=== PATIENT | female | born 1995 | race African-American/Black ===

== ENCOUNTER 2016-11-01 21:27 | Emergency (ER) | payer SELFPAY ==
--- OUTSIDE RECORDS SUMMARY | 2016-11-01 21:35 | XMS REPORT | Continuity of Care Document ---
Author Author Interface Organization Interface Address Unknown Phone Unavailable Problems Problem Status Onset Date Classification Date Reported Comments Source Allergic reaction (disorder) Active Problem 02/19/2015 [facility] Bacterial vaginosis (disorder) Active Problem 02/19/2015 [facility] Candidiasis of vagina (disorder) Active Problem 2014 [facility] Dysmenorrhea (disorder) Active Problem 02/19/2015 [facility] Menorrhagia (finding) Active Problem 02/19/2015 [facility] Navarro splint (physical object) Active Problem 02/19/2015 [facility] Syncope (disorder) Active Problem 02/19/2015 [facility] Vaginal odor (finding) Active Problem 02/19/2015 [facility] Vaginitis (disorder) Active Problem 02/19/2015 [facility] Verruca (morphologic abnormality) Active Problem 2014 [facility] Well child visit (procedure) Active Problem 02/19/2015 [facility] Allergic reaction (disorder) Active Problem 02/10/2016 [facility] Bacterial vaginosis (disorder) Active Problem 02/10/2016 [facility]. Candidiasis of vagina (disorder) Active Problem 2015 [facility] Dysmenorrhea (disorder) Active Problem 02/10/2016 [facility] Menorrhagia (finding) Active Problem 02/10/2016 [facility] Navarro splint (physical object) Active Problem 02/10/2016 [facility]. Syncope (disorder) Active Problem 02/10/2016 [facility]. Vaginal odor (finding) Active Problem 02/10/2016 [facility]. Vaginitis (disorder) Active Problem 02/10/2016 [facility]. Verruca (morphologic abnormality) Active Problem 2015 [facility]. Well child visit (procedure) Active Problem 02/10/2016 [facility]. Bacterial vaginosis (disorder) Active Problem 11/09/2013 [facility] Dysmenorrhea (disorder) Active Problem 11/09/2013 [facility] Menorrhagia (finding) Active Problem 11/09/2013 [facility] Navarro splint (physical object) Active Problem 11/09/2013 [facility] Syncope (disorder) Active Problem 11/09/2013 [facility] Vaginal odor (finding) Active Problem 11/09/2013 [facility] Verruca (morphologic abnormality) Active Problem 2013 [facility] Well child visit (procedure) Active Problem 11/09/2013 [facility] Generalized anxiety disorder 03/31/2015 Diagnosis 2014 [facility] Vaginitis (disorder) 2015 Diagnosis 02/10/2016 [facility] Urinary tract infection, site not specified 02/17/2015 Diagnosis 02/21/2015 [facility] Cervicitis and endocervicitis 02/17/2015 Diagnosis 2014 [facility] Other specified symptoms associated with female genital organs 02/17/2015 Diagnosis 02/21/2015 [facility] Vaginitis and vulvovaginitis, unspecified 08/16/2014 Diagnosis 08/20/2014 [facility] Candidiasis of vulva and vagina 08/16/2014 Diagnosis [facility] Allergy, unspecified, not elsewhere classified 04/12/2014 Diagnosis 04/16/2014 [facility] Need for other specified vaccination against single bacterial disease 03/16/2014 Diagnosis 03/20/2014 [facility] Medications Medication Details Route Status Patient Instructions Ordering Provider Order Date Source No Known Medications No known medications Active [facility] Allergies, Adverse Reactions, Alerts Substance Category Reaction Severity Reaction type Status Date Reported Comments Source Se[facility] Congestion of throat (finding) Drug allergy [facility] Seafood Assertion Congestion of throat (finding) Drug allergy [facility] NKA drug allergy Allergy Active [facility] Immunizations Immunization Date Given Site Status Last Updated Comments Source No data available for this section No data available for this section [facility] No data available for this section No data available for this section [facility] Results Order Name Results Value Reference Range Date Interpretation Comments Source Vital Signs Vital Sign Value Date Comments Source Encounters Location Location Details Encounter Type Encounter Number Reason For Visit Attending Provider ADM Date DC Date Status Source [facility] [id number] Clinic ( Outpatient) [id number] Naheed Crescencio 02/06/2016 Active [facility] Reference/ Referral Lab Billing Physician Non-Staff 02/15/2015 02/16/2015 [facility] [id number] Naheed Crescencio 03/31/2015 04/01/2015 [facility] [id number] Naheed Crescencio 02/06/2016 02/07/2016 [facility] [id number] [facility] 02/17/2015 02/18/2015 [facility] [id number] Naheed Crescencio 08/16/2014 08/17/2014 [facility] [id number] Naheed Crescencio 04/12/2014 04/13/2014 [facility] [id number] . [facility] 03/16/2014 03/17/2014 [facility] [id number] Clinic ( Outpatient) [id number] [facility] 02/17/2015 Active [facility] [id number] Clinic ( Outpatient) [id number] Naheed Crescencio 03/31/2015 Active [facility] [id number] Clinic ( Outpatient) [id number] Naheed Crescencio 08/16/2014 Active [facility] [id number] Clinic ( Outpatient) [id number] Naheed Crescencio 11/05/2013 Active [facility] [id number] Clinic ( Outpatient) [id number] . [facility] 10/29/2013 Active [facility] [id number] Clinic ( Outpatient) [id number] . [facility] 07/13/2013 Active [facility] [id number] Clinic ( Outpatient) [id number] . [facility] Walk-In 03/16/2014 Active [facility] [id number] Clinic ( Outpatient) [id number] Naheed Prather 04/12/2014 Active [facility] Procedures Procedure Code Date Perfomer Comments Source No data available for this section [facility]
== END 2016-11-01 23:36 | disposition left against medical advice (07) ==
LOC: ER 21:30
DX: R06.02 Shortness of breath (principal); Z53.21 Procedure and treatment not carried out due to patient leaving prior to being seen by health care provider

== ENCOUNTER 2017-08-16 22:17 | Emergency (ER) | payer OTHER ==
[~2017-08-16] VITALS: Ht 170.2 cm; Wt 63.5 kg
--- OUTSIDE RECORDS SUMMARY | 2017-08-16 22:25 | XMS REPORT | Continuity of Care Document ---
Author Author [employer] Organization [employer] Address Unknown Phone Unavailable Care Team Providers Care Child Support Specialist Name Role Phone [employer] Unavailable Unavailable Problems Problem Status Onset Date Classification Date Reported Comments Source Vaginitis (disorder) 2015 Diagnosis 02/10/2016 [facility] Generalized anxiety disorder 03/31/2015 Diagnosis 2014 [facility] Urinary tract infection, site not specified 02/17/2015 Diagnosis 02/21/2015 [facility] Cervicitis and endocervicitis 02/17/2015 Diagnosis 2014 [facility] Other specified symptoms associated with female genital organs 02/17/2015 Diagnosis 02/21/2015 [facility] Vaginitis and vulvovaginitis, unspecified 08/16/2014 Diagnosis 08/20/2014 [facility] Candidiasis of vulva and vagina 08/16/2014 Diagnosis [facility] Allergy, unspecified, not elsewhere classified 04/12/2014 Diagnosis 04/16/2014 [facility] Need for other specified vaccination against single bacterial disease 03/16/2014 Diagnosis 03/20/2014 [facility] Allergic reaction (disorder) Active Problem 02/10/2016 [facility], [facility] Bacterial vaginosis (disorder) Active Problem 02/10/2016 [facility], [facility] Candidiasis of vagina (disorder) Active Problem 2015 [facility], [facility] Dysmenorrhea (disorder) Active Problem 02/10/2016 [facility], [facility] Menorrhagia (finding) Active Problem 02/10/2016 [facility], [facility] Navarro splint (physical object) Active Problem 02/10/2016 [facility], [facility] Syncope (disorder) Active Problem 02/10/2016 [facility], [facility] Vaginal odor (finding) Active Problem 02/10/2016 [facility], [facility] Vaginitis (disorder) Active Problem 02/10/2016 [facility] Verruca (morphologic abnormality) Active Problem 2015 [facility] Well child visit (procedure) Active Problem 02/10/2016 [facility] Medications Medication Details Route Status Patient Instructions Ordering Provider Order Date Source No Known Medications No known medications Active [facility] Allergies, Adverse Reactions, Alerts Substance Category Reaction Severity Reaction type Status Date Reported Comments Source Seafood Assertion Congestion of throat (finding) Drug allergy [facility] NKA drug allergy Allergy Active [facility] Immunizations Immunization Date Given Site Status Last Updated Comments Source No data available for this section No data available for this section [facility] Results Vital Signs Encounters Location Location Details Encounter Type Encounter Number Reason For Visit Attending Provider ADM Date DC Date Status Source [facility] [id number] . [facility] Walk-In 03/16/2014 03/17/2014 [facility] [id number] Naheed Prather 04/12/2014 04/13/2014 [facility] [id number] aNheed Prather 08/16/2014 08/17/2014 [facility] Reference/ Referral Lab Billing Physician Non-Staff 02/15/2015 02/16/[address] [facility] [id number] Abby Alexandre 02/17/2015 02/18/2015 [facility] [id number] Naheed Prather 03/31/2015 04/01/2015 [facility] [id number] Naheed Prather 02/06/2016 02/07/2016 [facility] Procedures Procedure Code Date Perfomer Comments Source No data available for this section [facility] Plan of Care Social History Assessment and Plan Family History Value Date Source Advance Directives Order Name Results Value Date Source
[2017-08-16] MEDS ORDERED: L-NO1TBD18 (22:35)
[2017-08-16] MEDS ORDERED: FLUC150T2 (22:35)
[2017-08-16 22:47] LABS: BILIRUBIN,URINE NEGATIVE (NEGATIVE); KETONES,URINE NEGATIVE (NEGATIVE); LEUKOCYTE ESTERASE ,URINE 1+ (NEGATIVE); NITRITE,URINE NEGATIVE (NEGATIVE); PH,URINE 6 (5-9); PROTEIN,URINE 1+ (NEGATIVE); UROBILINOGEN,URINE 4 MG/DL (NORMAL)
[2017-08-16 22:59] LABS: BASOPHILS % (AUTO) 0 % (0-10); EOSINOPHILS # (AUTO) 0.2 10^3/uL (0.0-0.3); EOSINOPHILS % (AUTO) 3 % (0-10); LYMPHOCYTES % (AUTO) 44 % (12-44); MEAN CORPUSCULAR HEMOGLOBIN 31 PG (25-34); MEAN CORPUSCULAR HGB CONC 33 G/DL (32-36); MEAN CORPUSCULAR VOLUME 93 FL (80-99); MEAN PLATELET VOLUME 9.7 FL (7.4-10.4); MONOCYTES # (AUTO) 0.4 X 10^3 (0.0-1.0); MONOCYTES % (AUTO) 9 % (0-12); NEUTROPHILS # (AUTO) 1.9 X 10^3 (1.8-7.8); NEUTROPHILS % (AUTO) 43 % (42-75); PLATELET COUNT 197 10^3/uL (130-400); RED BLOOD COUNT 4.45 10^6/uL (4.35-5.85); RED CELL DISTRIBUTION WIDTH 12.5 % (10.0-14.5); WHITE BLOOD COUNT 4.5 10^3/uL (4.3-11.0)
[2017-08-16] MEDS ORDERED: NS IV 1000 ML 1,000 ML IV ONE (22:59)
[2017-08-16 23:00] LABS: SQUAMOUS EPITHELIAL CELL,UR >50 /HPF
[2017-08-16] MEDS ORDERED: RX-DIPHENO./ATROP. 2.5/0.25 MG (LOMOTIL) TAB PPK#4 PO STA (23:01)
--- NOTE | 2017-08-16 23:08 | ED GI ---
General Chief Complaint: Abdominal/GI Problems Stated Complaint: "APPENDIX BURST"/ R SIDE STOMACH PAIN/STOMACH FLU Nursing Triage Note: patient reports LUQ, RUQ, RLQ pain. states was evaluated yesterday and told she had the 'stomach flu' patient reports having emesis yesterday but not today however, stating diarrhea continues. patient reports pain started after eating pea soup Sepsis Screen: No Definite Risk History of Present Illness Time Seen By Provider: 22:40 Initial Comments 21-year-old -[place] female Patient reports that she started with vomiting 2 days ago. The vomiting has resolved and she is now having diarrhea. She reports approximately 3 episodes in the hour prior to her coming here. She has been taking Imodium and Phenergan. Approximately 3 weeks ago she was diagnosed with vaginal candidiasis, and treated with Diflucan. She is sexually active, one partner, oral contraceptives and uses condoms. She had STI testing approximately 3-4 weeks ago and all were negative, no new partners. She denies any vaginal discharge or painful intercourse. Timing/Duration: 2-3 Days Severity/Quality: Mild Radiation: RUQ, RLQ, Flank (right) Modifying Factors: Improves With Resting Associated Symptoms: Back Pain, Nausea/Vomiting, Weakness Allergies and Home Medications Allergies Coded Allergies: shellfish derived (Verified Allergy, Unknown, 08/16/17) Home Medications Ciprofloxacin HCl 500 Mg Tablet, 500 MG PO BID, #10 Ref 0 Prescribed by: CYNDY TIJERINA on 08/16/17 2345 Fluconazole 150 Mg Tablet, (Reported) h-Landfhz-Hnt Estr/Ethin Estra 1 Each Tbdspk.3mo, (Reported) Review of Systems Constitutional: no symptoms reported Gastrointestinal: See HPI, Abdomen Distended, Diarrhea, Nausea, Poor Appetite, Vomiting, Other (patient has increased her Gatorade intake, she has been eating soup and saltines.) Genitourinary: No Symptoms Reported, See HPI, Denies Burning, Flank Pain (right ) All Other Systems Reviewed Negative Unless Noted: Yes Past Btjvdzo-Mkauzs-Fzehfa Hx Patient Social History Alcohol Use: Denies Use Recreational Drug Use: No Smoking Status: Never a Smoker Recent Foreign Travel: No Contact w/Someone Who Travel: No Recent Infectious Disease Expo: No Recent Hopitalizations: No Physical Abuse: No Sexual Abuse: No Surgeries History of Surgeries: No Respiratory History of Respiratory Disorde: No Cardiovascular History of Cardiac Disorders: No Neurological History of Neurological Disord: No Genitourinary History of Genitourinary Disor: No Gastrointestinal History of Gastrointestinal Di: No Musculoskeletal History of Musculoskeletal Dis: No Endocrine History of Endocrine Disorders: No HEENT History of HEENT Disorders: No Cancer History of Cancer: No Psychosocial History of Psychiatric Problem: No Suicide Risk Score: 0 Integumentary History of Skin or Integumenta: No Blood Transfusions History of Blood Disorders: No Reviewed Nursing Assessment Reviewed/Agree w Nursing PMH: Yes Physical Exam Vital Signs VS - Last 72 Hours, by Label 08/16/17 22:31 Temp 96.8 Pulse 80 Resp 18 B/P (MAP) 135/98 (110) Pulse Ox 98 Capillary Refill : Less Than 3 Seconds General Appearance: WD/WN, mild distress HEENT: PERRL/EOMI, normal ENT inspection, TMs normal, pharynx normal, other ( oral mucosa pink and moist) Neck: non-tender, full range of motion, supple, No lymphadenopathy (R), No lymphadenopathy (L) Respiratory: chest non-tender, lungs clear, normal breath sounds, no respiratory distress Cardiovascular: normal peripheral pulses, regular rate, rhythm Gastrointestinal: normal bowel sounds, soft, no organomegaly, no pulsatile mass , distended, No guarding, No rebound, tenderness (right upper and lower quadrant ), other (no pain at McBurney's point, negative Peoples, psoas, heeltap and obturator sign) Extremities: normal range of motion, non-tender, normal inspection, no pedal edema, no calf tenderness, normal capillary refill Back: normal inspection, CVA tenderness (R) Neurologic/Psychiatric: no motor/sensory deficits, alert, normal mood/affect, oriented x 3 Skin: normal color, warm/dry Progress/Results/Core Measures Results/Orders Lab Results Laboratory Tests Test 08/16/17 22:39 08/16/17 22:45 Range/Units Urine Color YELLOW Urine Clarity SLIGHTLY CLOUDY Urine pH 6 5-9 Urine Specific Sunflower 1.020 1.016-1.022 Urine Protein 1+ H NEGATIVE Urine Glucose (UA) NEGATIVE NEGATIVE Urine Ketones NEGATIVE NEGATIVE Urine Nitrite NEGATIVE NEGATIVE Urine Bilirubin NEGATIVE NEGATIVE Urine Urobilinogen 4 H NORMAL MG/DL Urine Leukocyte Esterase 1+ H NEGATIVE Urine RBC (Auto) 3+ H NEGATIVE Urine RBC 5-10 H /HPF Urine WBC 2-5 /HPF Urine Squamous Epithelial Cells >50 H /HPF Urine Crystals NONE /LPF Urine Bacteria LARGE H /HPF Urine Casts NONE /LPF Urine Mucus NEGATIVE /LPF Urine Culture Indicated NO White Blood Count 4.5 4.3-11.0 10^3/uL Red Blood Count 4.45 4.35-5.85 10^6/uL Hemoglobin 13.6 11.5-16.0 G/DL Hematocrit 41 35-52 % Mean Corpuscular Volume 93 80-99 FL Mean Corpuscular Hemoglobin 31 25-34 PG Mean Corpuscular Hemoglobin Concent 33 32-36 G/DL Red Cell Distribution Width 12.5 10.0-14.5 % Platelet Count 197 130-400 10^3/uL Mean Platelet Volume 9.7 7.4-10.4 FL Neutrophils (%) (Auto) 43 42-75 % Lymphocytes (%) (Auto) 44 12-44 % Monocytes (%) (Auto) 9 0-12 % Eosinophils (%) (Auto) 3 0-10 % Basophils (%) (Auto) 0 0-10 % Neutrophils # (Auto) 1.9 1.8-7.8 X 10^3 Lymphocytes # (Auto) 2.0 1.0-4.0 X 10^3 Monocytes # (Auto) 0.4 0.0-1.0 X 10^3 Eosinophils # (Auto) 0.2 0.0-0.3 10^3/uL Basophils # (Auto) 0.0 0.0-0.1 10^3/uL Sodium Level 140 135-145 MMOL/L Potassium Level 3.0 L 3.6-5.0 MMOL/L Chloride Level 103 98-107 MMOL/L Carbon Dioxide Level 25 21-32 MMOL/L Anion Gap 12 5-14 MMOL/L Blood Urea Nitrogen 7 7-18 MG/DL Creatinine 0.74 0.60-1.30 MG/DL Estimat Glomerular Filtration Rate > 60 BUN/Creatinine Ratio 9 Glucose Level 104 70-105 MG/DL Calcium Level 9.2 8.5-10.1 MG/DL Total Bilirubin 0.2 0.1-1.0 MG/DL Aspartate Amino Transf (AST/SGOT) 19 5-34 U/L Alanine Aminotransferase (ALT/SGPT) 14 0-55 U/L Alkaline Phosphatase 55 40-136 U/L C-Reactive Protein High Sensitivity 8.68 H 0.00-0.50 MG/DL Total Protein 7.3 6.4-8.2 GM/DL Albumin 3.8 3.2-4.5 GM/DL My Orders Orders - CYNDY TIJERINA Cbc With Automated Diff (08/16/17 22:38) Comprehensive Metabolic Panel (08/16/17 22:38) Hs C Reactive Protein (08/16/17 22:38) Ua Culture If Indicated (08/16/17 22:38) Urine Bedside (08/16/17 22:38) Saline Lock/Iv-Start (08/16/17 22:59) Ns Iv 1000 Ml (Sodium Chloride 0.9%) (08/16/17 22:59) Rx-Diphenoxylate/Atropine (Rx-Lomotil 2. (08/16/17 23:01) Sulfamethoxazole/Trimet Ds Tab (Bactrim (08/16/17 23:22) Medications Given in ED Current Medications Medications Dose Ordered Sig/Wai Route Start Time Stop Time Status Last Admin Dose Admin Sodium Chloride 1,000 ml @ 0 mls/hr Q0M ONCE IV 08/16/17 22:59 08/16/17 23:01 DC 08/16/17 23:10 0 MLS/HR Vital Signs/I&O Vital Sign - Last 12Hours 08/16/17 22:31 Temp 96.8 Pulse 80 Resp 18 B/P (MAP) 135/98 (110) Pulse Ox 98 Blood Pressure Mean: 110 Point of Care Testing Urine -Bedside: Negative Progress Note : Time: 22:40 Progress Note Initial evaluation completed, recommended labs, UA, and IV fluids, 1 L normal saline 2310 all labs essentially normal, WBC 4.9. Abdominal pain resolving. No nausea, vomiting or diarrhea since admission to the emergency department. Based on labs and exam discussed CT imaging of the abdomen with the patient, risks and benefits were discussed. Present time no indication for CT, patient agreed with this. 2330 Based on elevated CRP, will switch from Bactrim DS to Cipro 500 mg bid for 5 days. Departure Impression Impression: Primary Impression: Diarrhea Qualified Codes: R19.7 - Diarrhea, unspecified Additional Impressions: Pain in the abdomen Qualified Codes: R10.84 - Generalized abdominal pain Urinary tract infection Qualified Codes: N30.01 - Acute cystitis with hematuria Disposition: HOME, SELF-CARE Condition: Stable Departure-Patient Inst. Decision time for Depature: 23:15 Referrals: [facility] (PCP/Family) Primary Care Physician Patient Instructions: Diarrhea in Adolescents and Adults Add. Discharge Instructions: Clear liquid diet for the next 8 hours, may progress to bland diet. Take antibiotics as prescribed, get Prescription Friday morning at [facility]. Use Lomotil for diarrhea. If symptoms are continuing follow-up at [facility] on Friday. Return to emergency department for fever greater than 101 not relieved by Tylenol or ibuprofen, increased abdominal pain, dizziness/weakness, recurrent vomiting or diarrhea, or new problems. All discharge instructions reviewed with patient and/or family. Voiced understanding. Scripts Ciprofloxacin HCl (Cipro) 500 Mg Tablet 500 MG PO BID, #10 TAB 0 Refills Prov: CYNDY TIJERINA 08/16/17 Copy Copies To 1: CARMEN INIGUEZ MD, AMY ARNP Aug 16, 2017 23:08
[2017-08-16] MEDS ORDERED: TRIM/SULFAMETH 160/800 (SEPTRA DS) TAB PO STA (23:22)
[2017-08-16 23:25] LABS: ALANINE AMINOTRANSFERASE 14 U/L (0-55); ALBUMIN 3.8 GM/DL (3.2-4.5); ANION GAP 12 MMOL/L (5-14); ASPARTATE AMINO TRANSFERASE 19 U/L (5-34); BILIRUBIN,TOTAL 0.2 MG/DL (0.1-1.0); BLOOD UREA NITROGEN 7 MG/DL (7-18); BUN/CREATININE RATIO 9; CALCIUM 9.2 MG/DL (8.5-10.1); CARBON DIOXIDE 25 MMOL/L (21-32); CHLORIDE 103 MMOL/L (98-107); CREATININE SERUM 0.74 MG/DL (0.60-1.30); GFR ESTIMATED > 60; GLUCOSE 104 MG/DL (70-105); SODIUM 140 MMOL/L (135-145); TOTAL PROTEIN 7.3 GM/DL (6.4-8.2); hs C REACTIVE PROTEIN 8.68 MG/DL (0.00-0.50)
[2017-08-16] MEDS ORDERED: SULF1TAB35 PO (23:31)
[2017-08-16 23:42] VITALS: BP 0/0
[2017-08-16] MEDS ORDERED: CIPR-225 PO (23:45)
== END 2017-08-16 23:42 | disposition home or self-care (01) ==
LOC: EDUNIT# 22:17 → ER 22:21
DX: N39.0 Urinary tract infection, site not specified (principal); R19.7 Diarrhea, unspecified; Z86.19 Personal history of other infectious and parasitic diseases
CPT/HCPCS: 36415; 80053; 81000; 84703; 85025; 86141